=== PATIENT | male | born 1960 | race Caucasian/White ===

== ENCOUNTER 2016-08-03 09:43 | Emergency (ER) | payer BC ==
[2016-08-03 09:17] LABS: BASOPHILS 2.8 %; BASOPHILS ABSOLUTE 0.13 10/3/uL (0.0-0.16); EOSINOPHILS 6.6 %; HEMATOCRIT 43.7 % (40.0-51.0); HEMOGLOBIN 14.7 g/dL (13.6-17.8); IMMATURE GRANULOCYTES 0.2 %; IMMATURE GRANULOCYTES ABSOLUTE 0.01 10/3/uL (0.0-0.11); LYMPHOCYTES 31.7 %; LYMPHOCYTES ABSOLUTE 1.45 10/3/uL (0.67-4.30); MEAN CORPUS HGB CONC 33.6 g/dL (32.0-36.0); MEAN CORPUSCULAR HEMOGLOB 26.4 pg (26.0-34.0); MEAN PLATELET VOLUME 9.7 fL (9.2-13.0); MONOCYTES ABSOLUTE 0.32 10/3/uL (0.21-1.20); NEUTROPHILS 51.7 %; NEUTROPHILS ABSOLUTE 2.37 10/3/uL (2.02-8.40); PLATELET COUNT 197 10/3/uL (150-400); RBC DISTRIBUTION WIDTH 14.6 % (12.0-16.0); RED CELL COUNT 5.57 10/6/uL (4.7-6.1); WHITE BLOOD CELLS 4.6 10/3/uL (4.5-10.5)
[2016-08-03 09:19] LABS: MANUAL DIFF NO %; MEAN CORPUSCULAR VOLUME 78.5 fL (80-100)
[2016-08-03 09:27] LABS: PROTIME (NOT ORD) 13.3 SEC (12.0-14.5)
[2016-08-03 09:28] LABS: PARTIAL THROMBO TIME 35.4 SEC (22.5-37.2)
[2016-08-03 09:39] LABS: BUN (BLOOD UREA NITROGEN) 13 MG/DL (6-23); CALCIUM, SERUM 8.8 MG/DL (8.5-10.4); CHEST PAIN PROFILE TAT 0 Hrs 26 Mins; CHLORIDE, SERUM 106 MMOL/L (96-112); CO2 (CARBON DIOXIDE) 26 MMOL/L (24-34); GFR AFRICAN AMERICAN 80 ML/MIN (>=60); GFR NON AFRICAN AMERICAN 69 ML/MIN (>=60); GLUCOSE, SERUM 107 MG/DL (60-99); SODIUM, SERUM 139 MMOL/L (135-148); TROPONIN I <0.02 NG/ML (<0.05)
[~2016-08-03 09:43] MED LIST: ASAB PO; VIT/HERBS; VITAINJ IM
[2016-11-10] MEDS ORDERED: ALLERGY SHOTS (13:00)
[2016-11-10] MEDS ORDERED: T PO (13:02)
[2016-11-10] MEDS ORDERED: NORV5 PO (13:06)
[2016-11-10] MEDS ORDERED: FOLINIC PLUS PO (13:07)
[2016-11-10] MEDS ORDERED: COZAAR100 MG PO (13:07)
[2016-11-10] MEDS ORDERED: AMBIEN CR12.5 MG PO (13:07)
[2016-11-10] MEDS ORDERED: FEMARA PO (13:08)
[2016-11-10] MEDS ORDERED: GLUCPH PO (13:09)
[2016-11-10] MEDS ORDERED: PROAIRRESP INH (13:38)
[2016-11-10] MEDS ORDERED: DULERA 100 MCG/13 GM INH (13:38)
== END 2016-08-03 11:49 | disposition home or self-care (01) ==
LOC: ER 09:43
PROVIDERS: Emergency Medicine
DX: R07.9 Chest pain, unspecified (principal); R00.2 Palpitations; I10 Essential (primary) hypertension; Z88.2 Allergy status to sulfonamides; Z88.8 Allergy status to other drugs, medicaments and biological substances; Z91.09 Other allergy status, other than to drugs and biological substances; Z79.82 Long term (current) use of aspirin
CPT/HCPCS: 71020; 80048; 83735; 84443; 84484; 85025; 85610; 85730; 93005; 99285; A9270-GY

== ENCOUNTER 2016-11-16 06:15 | Day surgery (SDC) | payer BC ==
[2016-11-11 13:27] LABS: HEMATOCRIT 46.4 % (40.0-51.0); HEMOGLOBIN 15.6 g/dL (13.6-17.8)
[2016-11-11 13:39] LABS: A/G RATIO 1.2 (0.7-1.9); ALBUMIN 4.4 G/DL (3.5-5.0); ALKALINE PHOSPHATASE 64 U/L (45-117); BUN (BLOOD UREA NITROGEN) 19 MG/DL (6-23); CALCIUM, SERUM 9.5 MG/DL (8.5-10.4); CHLORIDE, SERUM 106 MMOL/L (96-112); CO2 (CARBON DIOXIDE) 26 MMOL/L (24-34); CREATININE 1.26 MG/DL (0.70-1.30); GFR AFRICAN AMERICAN 75 ML/MIN (>=60); GFR NON AFRICAN AMERICAN 65 ML/MIN (>=60); GLOBULIN 3.7 G/DL (2.5-4.1); GLUCOSE, SERUM 107 MG/DL (60-99); POTASSIUM, SERUM 4.5 MMOL/L (3.5-5.3); SGOT(AST) 26 U/L (5-40); SGPT(ALT) 43 U/L (5-65); SODIUM, SERUM 141 MMOL/L (135-148); TOTAL BILIRUBIN 0.8 MG/DL (0-1.2); TOTAL PROTEIN 8.1 G/DL (6.0-8.5)
--- NOTE | ~2016-11-16 | OP ---
Record Of Operation [facility] [address] [place]. [address] NAME: MADHU BESS : 64 STATUS : REG [facility] [place] PAT#: [id number] AGE: 55 ADM/REG DATE : 11/16/16 MR#: [id number] REPORT SERV DATE: 11/16/16 DICTATED BY: RAJI GIFFORD DATE: 11/16/16 REPORT STATUS : Draft TRANSCRIBED BY: MODL DATE: 11/16/16 DATE OF PROCEDURE: 11/16/2016 PREOPERATIVE DIAGNOSIS: Chronic cholecystitis with cholelithiasis. POSTOPERATIVE DIAGNOSIS: Chronic cholecystitis with cholelithiasis with small incarcerated umbilical hernia defect. PROCEDURES: 1. Laparoscopic cholecystectomy (two-site). 2. Primary repair of incarcerated umbilical hernia. DESCRIPTION OF OPERATIVE PROCEDURE: The patient was brought to operating suite, placed in supine position, underwent satisfactory general endotracheal anesthesia without incident. The skin of the abdomen was scrubbed, prepped, and draped in usual sterile fashion. 0.5% Marcaine with epinephrine was utilized as supplemental local anesthesia at all intended trocar sites. Initially, an infraumbilical incision was performed dissecting through the skin and subcutaneous tissue. The patient was noted to have a small incarcerated umbilical hernia defect with trapped preperitoneal fat. The umbilical fascia was grasped and elevated. A disposable Veress insufflation was inserted through the umbilical fascia and the peritoneal cavity. Intraperitoneal tip location ascertained using the saline hanging drop method following which CO2 was insufflated for pressures of 15 mmHg throughout the case. After adequate insufflation pressure was achieved, the Veress needle was removed, disposable bladed/shielded 11 mm trocar was inserted through the umbilical fascia into the peritoneal cavity following which a rigid forward-viewing 10 mm laparoscope was inserted. Visualization of the intraabdominal parietes revealed no evidence of injury from initial insufflation or puncture. A cursory examination of pelvis was normal. Attention was then turned to the upper abdomen. An additional 5 mm trocar was placed to the right of falciform ligament. An additional 5 mm grasping instrument inserted through the umbilical fascia next to the umbilical trocar. The fundus and body of the gallbladder were grasped and elevated and then fibrofatty adhesions from the infundibular portion were dissected free. Dissection of the triangle of Calot was successful in identifying and skeletonizing the cystic duct and cystic duct and common duct junction as well as the cystic artery. Both of these structures were controlled with multiple applications of the Weck 5 mm polymer clip system and divided. Then, using spatula cautery dissection, the peritoneal attachments of the gallbladder to the liver were divided and the gallbladder was removed from the subhepatic space. Record Of Operation [facility] [address] [place]. [address] NAME: MADHU BESS : 64 STATUS : REG [facility] [place] PAT#: [id number] AGE: 55 ADM/REG DATE : 11/16/16 MR#: [id number] REPORT SERV DATE: 11/16/16 DICTATED BY: RAJI GIFFORD DATE: 11/16/16 REPORT STATUS : Draft TRANSCRIBED BY: MAISHA DATE: 11/16/16 Next, the camera was switched to the 5 mm epigastric port. The gallbladder was grasped by its neck and withdrawn through the umbilical port. With the umbilical trocar being removed, the gallbladder was delivered, it contained numerous tiny clumped stones. CO2 was allowed to egress from peritoneal cavity. Then, attention was turned to repairing the umbilical defect. The preperitoneal fat protrusion that was incarcerated, was excised, and the muscular aponeurotic fascia was cleaned from overlying fibrofatty tissue. Using a pqkhid-[id number] suture of 0 Ethibond, the umbilical fascia was closed, and the subcutaneous tissue closed at all sites with interrupted 4-0 Vicryl, running subcuticular stitch 4-0 Vicryl for the skin. Dermabond skin adhesive placed. The patient tolerated the procedure well and was returned to PACU in stable condition. At the termination of the procedure, sponge, needle, lap, and instrument counts were correct x3. ESTIMATED BLOOD LOSS: Less than 10 mL. MARCELO/ROCL Raji Gifford M.D. / [id number] CC: Fredo Rocha MD
[~2016-11-16 06:15] MED LIST changes: +ALLERGY SHOTS; +AMBIEN CR12.5 MG PO; +COZAAR100 MG PO; +DULERA 100 MCG/13 GM INH; +FEMARA PO; +FOLINIC PLUS PO; +GLUCPH PO; +NORV5 PO; +PROAIRRESP INH; +T PO
== END 2016-11-16 16:31 | disposition home or self-care (01) ==
LOC: SDC 06:15
PROVIDERS: Specialist
PROC: 0FT44ZZ Resection of Gallbladder, Percutaneous Endoscopic Approach (ICD-10-PCS; principal; 2016-11-16 07:45)
PROC: 0WQF0ZZ Repair Abdominal Wall, Open Approach (ICD-10-PCS; 2016-11-16 07:45)
DX: K80.20 Calculus of gallbladder without cholecystitis without obstruction (principal); K42.0 Umbilical hernia with obstruction, without gangrene; I10 Essential (primary) hypertension; E11.9 Type 2 diabetes mellitus without complications; J45.909 Unspecified asthma, uncomplicated; F41.9 Anxiety disorder, unspecified; K21.9 Gastro-esophageal reflux disease without esophagitis; G47.33 Obstructive sleep apnea (adult) (pediatric); M54.9 Dorsalgia, unspecified; Z88.2 Allergy status to sulfonamides; Z91.09 Other allergy status, other than to drugs and biological substances; Z79.84 Long term (current) use of oral hypoglycemic drugs; Z79.82 Long term (current) use of aspirin; Z79.899 Other long term (current) drug therapy; Z98.890 Other specified postprocedural states
CPT/HCPCS: 76000; 80053; 82962; 85014; 85018; 88304; 93005; A9270-GY; J0690; J1885; J2250; J2405; J2710; J3010